=== PATIENT | male | born 1985 | race African-American/Black ===

== ENCOUNTER 2020-09-16 05:35 | Emergency (ER) | payer SELFPAY ==
[~2020-09-16] VITALS: Ht 185.4 cm; Wt 70.0 kg
[2020-09-16 06:18] VITALS: BP 132/80
== END 2020-09-16 07:04 | disposition home or self-care (01) ==
LOC: ER 05:35
DX: F19.10 Other psychoactive substance abuse, uncomplicated (principal); I10 Essential (primary) hypertension
CPT/HCPCS: 82962; 99283